=== PATIENT | female | born 1955 | race Asian ===

== ENCOUNTER 2023-03-18 06:41 | Day surgery (SDC) | payer MEDICARE, OTHER ==
[~2023-03-18] VITALS: Ht 142.2 cm; Wt 38.2 kg
[2023-03-18] MEDS ORDERED: BENZOCAINE 20% 50 MCG/SPRAY 57 GM TP ONE (06:42)
[2023-03-18] MEDS ORDERED: LIDOCAINE 4% 50 ML SOLUTION TP ONE (06:42)
[2023-03-18] MEDS ORDERED: LIDOCAINE 2% 11 ML JELLY TP ONE (06:42)
[2023-03-18] MEDS ORDERED: ALBUTEROL SULFATE 2.5 MG/0.5 ML NEB SOLUTION NEB ONE (06:42)
[2023-03-18] MEDS ORDERED: SODIUM CHLORIDE 0.9% 1,000 ML ONE (07:39)
[2023-03-18] MEDS ORDERED: MIDAZOLAM HCL 2 MG/2 ML VIAL ONE (08:04)
[2023-03-18] MEDS ORDERED: FentaNYL CITRATE PF 100 MCG/2 ML VIAL ONE (08:04)
[2023-03-18 08:15] LABS: GLUCOMETER DEV NAME(LOC) SDS.; GLUCOSE,POINT OF CARE 120 MG/DL (70-110)
[2023-03-18] MEDS ORDERED: SODIUM CHLORIDE 0.9% 1,000 ML IV ONE (08:15)
[2023-03-18] MEDS ORDERED: MethylPREDNISolone SOD SUCC 125 MG/2 ML VIAL ONE (09:04)
[2023-03-18] MEDS ORDERED: MethylPREDNISolone SOD SUCC 125 MG/2 ML VIAL IVP ONE (09:45)
== END 2023-03-18 11:40 | disposition home or self-care (01) ==
LOC: SURGERY 06:41
PROVIDERS: ATTEND Internal Medicine Critical Care Medicine
DX: R05.3 Chronic cough (principal); Z79.899 Other long term (current) drug therapy; E03.9 Hypothyroidism, unspecified; E11.9 Type 2 diabetes mellitus without complications; Z98.890 Other specified postprocedural states; Z98.41 Cataract extraction status, right eye
CPT/HCPCS: 31623; 88112; 82962; 87206; 87101; 87220; 87070; 31624; 94640; 71045; 87015; J3010; J2250; J2930; Q9967; J7030; J7613; Z7610